=== PATIENT | female | born 1970 | race Caucasian/White ===

== ENCOUNTER → 2021-03-27 16:53 | Outpatient (CLI) | payer OTHER, SELFPAY | PROVIDERS: PCP Physician Assistant; Referring Provider Physician Assistant; Visit Provider Physician Assistant | DX: U07.1 COVID-19 (principal) | CPT/HCPCS: 87635; U0005; U0003 ==

== ENCOUNTER → 2023-05-13 | Outpatient (CLI) | payer OTHER, SELFPAY ==
--- NOTE | 2023-05-13 14:20 | NEURO ---
NCS and/or EMG Patient Report Ordering Doctor: SAMANTHA JEAN DATE OF SERVICE: 05/13/23 Miriam presents for electrodiagnostic testing of the lower limbs. She reports numbness and tingling in both legs. Electrodiagnostic findings: Left peroneal motor nerve demonstrates normal distal latency, amplitude and conduction velocity. Right peroneal motor nerve demonstrates normal distal latency, amplitude and conduction velocity. Normal tibial motor responses noted bilaterally. Normal peroneal and tibial F?waves. H-reflexes are within normal limits. Borderline prolonged right sural latency. Normal left sural, bilateral superficial peroneal and bilateral medial plantar responses. Needle EMG testing was performed in the lower limbs. All muscles tested showed no evidence of denervation with normal motor unit action potentials. Electrodiagnostic assessment: This is a normal electrodiagnostic study of the lower limbs. There is no electrodiagnostic evidence for peripheral neuropathy or lumbosacral radiculopathy. If symptoms persist, could consider nerve biopsy to evaluate for potential small fiber neuropathy. Multi Select Codes Neurology Neurology Interp Codes: 75852-35 Musc test done w/n test comp (interp) (2) and 22182-66 Nrv cndj test 11-12 studies (interp)
== END | disposition home or self-care (01) ==
PROVIDERS: PCP Physician Assistant; Referring Provider Nurse Practitioner Adult Health; Visit Provider Nurse Practitioner Adult Health
DX: R29.898 Other symptoms and signs involving the musculoskeletal system (principal)
CPT/HCPCS: 95886; 95913